=== PATIENT | male | born 1985 | race Caucasian/White ===

== ENCOUNTER 2018-01-21 18:03 | Emergency (ER) | payer OTHER ==
[~2018-01-21] VITALS: Ht 188 cm; Wt 142.8 kg
[2018-01-21] MEDS ORDERED: MOTRIN800 MG PO (19:29)
[2018-01-21] MEDS ORDERED: ULTRACET1 TABLET PO (19:29)
[2018-01-21] MEDS ORDERED: PEN-VEE K,VEET500 MG PO (19:29)
[2018-01-21] MEDS ORDERED: LIDOCAINE20 MG/1 M5 PO (19:29)
[2018-01-21 19:46] VITALS: BP 134/76
== END 2018-01-21 19:47 | disposition home or self-care (01) ==
LOC: EME 18:03
DX: K03.81 Cracked tooth (principal); F17.200 Nicotine dependence, unspecified, uncomplicated; Z96.643 Presence of artificial hip joint, bilateral; Z88.1 Allergy status to other antibiotic agents
CPT/HCPCS: 99281; 99284

== ENCOUNTER 2018-01-27 17:32 | Emergency (ER) | payer OTHER ==
[~2018-01-27] VITALS: Ht 188 cm; Wt 141.5 kg
[~2018-01-27 17:32] MED LIST: LIDOCAINE20 MG/1 M5 PO; MOTRIN800 MG PO; PEN-VEE K,VEET500 MG PO; ULTRACET1 TABLET PO
[2018-01-27] MEDS ORDERED: ULTRACET1 TABLET PO (18:48)
[2018-01-27] MEDS ORDERED: INDOCIN50 MG PO (18:48)
[2018-01-27 19:05] VITALS: BP 123/77
== END 2018-01-27 19:06 | disposition home or self-care (01) ==
LOC: EME 17:32
DX: K08.89 Other specified disorders of teeth and supporting structures (principal); K03.81 Cracked tooth; Z88.1 Allergy status to other antibiotic agents; F17.200 Nicotine dependence, unspecified, uncomplicated
CPT/HCPCS: 99281; 99284